=== PATIENT | male | born 1950 | race Caucasian/White ===

== ENCOUNTER 2018-09-29 14:11 | Emergency (ER) | payer MEDICARE | END 2018-09-29 14:14 | disposition E | LOC: EDBD 14:11 → ED 14:11 | DX: S02.91XB Unspecified fracture of skull, initial encounter for open fracture (principal); I46.8 Cardiac arrest due to other underlying condition; V89.2XXA Person injured in unspecified motor-vehicle accident, traffic, initial encounter; Y92.414 Local residential or business street as the place of occurrence of the external cause ==